=== PATIENT | female | born 1985 | race Caucasian/White ===

== ENCOUNTER 2017-03-18 18:16 | Emergency (ER) | payer MEDICAID ==
[2017-03-18 19:17] LABS: ALBUMIN 3.7 g/dL (3.4-5.0); ALKALINE PHOSPHATASE 67 U/L (46-116); ALT/SGPT 36 U/L (14-59); AST/SGOT 26 U/L (15-37); BILIRUBIN TOTAL 0.55 mg/dL (0.20-1.00); CALCIUM 9.4 mg/dL (8.5-10.1); CARBON DIOXIDE 28.3 mmol/L (21-32); CHLORIDE SERUM 103 mmol/L (98-107); CREATININE SERUM 0.8 mg/dL (0.6-1.0); GFR1 > 60 mL/min; GLUCOSE SERUM 93 mg/dL (74-106); SODIUM SERUM 141 mmol/L (136-145)
[2017-03-18 19:26] LABS: POTASSIUM SERUM 2.8 mmol/L (3.5-5.1)
[2017-03-18 21:50] VITALS: BP 113/68
== END 2017-03-18 21:50 | disposition home or self-care (01) ==
LOC: ED 18:16
PROVIDERS: Emergency Medicine
DX: R07.89 Other chest pain (principal); E78.00 Pure hypercholesterolemia, unspecified
CPT/HCPCS: 36415; J1885; Q0092

== ENCOUNTER 2017-05-09 12:52 | Emergency (ER) | payer SELFPAY ==
[2017-05-09 16:21] LABS: PLATELET COUNT 264 x10^3mcL (130-400)
[2017-05-09 16:22] LABS: BASOPHIL % 2.4 % (0-2); RED CELL DISTRIBUTION WIDTH 14.9 % (11.5-14.5)
[2017-05-09 17:22] VITALS: BP 118/65
== END 2017-05-09 17:22 | disposition home or self-care (01) ==
LOC: ED 12:52
PROVIDERS: Emergency Medicine
DX: O20.0 Threatened abortion (principal); E78.00 Pure hypercholesterolemia, unspecified; Z3A.01 Less than 8 weeks gestation of pregnancy
CPT/HCPCS: 36415; Q0092

== ENCOUNTER 2018-05-31 23:19 | Emergency (ER) | payer MEDICAID ==
[~2018-05-31] VITALS: Ht 154.9 cm; Wt 82.6 kg
[2018-05-31 23:25] VITALS: Ht 154.9 cm; Wt 82.6 kg
[2018-06-01 02:03] LABS: BASOPHIL % 0.6 % (0-2); PLATELET COUNT 222 x10^3mcL (130-400)
[2018-06-01 02:05] LABS: RED CELL DISTRIBUTION WIDTH 16.7 % (11.5-14.5)
[2018-06-01 02:11] LABS: CALCIUM 9.2 mg/dL (8.5-10.1); CARBON DIOXIDE 29.4 mmol/L (21-32); CHLORIDE SERUM 100 mmol/L (98-107); CREATININE SERUM 0.7 mg/dL (0.6-1.0); GFR1 > 60 mL/min; GLUCOSE SERUM 135 mg/dL (74-106); POTASSIUM SERUM 3.3 mmol/L (3.5-5.1); SODIUM SERUM 139 mmol/L (136-145)
[2018-06-01 02:17] LABS: ALKALINE PHOSPHATASE 84 U/L (46-116); ALT/SGPT 90 U/L (14-59); AST/SGOT 42 U/L (15-37); BILIRUBIN TOTAL 0.4 mg/dL (0.20-1.00); LIPASE 152 IU/L (73-393)
[2018-06-01 02:18] LABS: ALBUMIN 3.2 g/dL (3.4-5.0)
[2018-06-01 03:35] VITALS: BP 120/67
== END 2018-06-01 03:35 | disposition home or self-care (01) ==
LOC: ED 23:19
PROVIDERS: Emergency Medicine
DX: R00.2 Palpitations (principal); R07.89 Other chest pain; R11.0 Nausea; E78.00 Pure hypercholesterolemia, unspecified
CPT/HCPCS: 36415; J1885; Q0092; Q0162

== ENCOUNTER 2018-07-20 17:00 | Inpatient (IN) | payer MEDICAID ==
[~2018-07-20] VITALS: Ht 154.9 cm; Wt 80.7 kg
[2018-07-20 17:10] VITALS: Ht 154.9 cm; Wt 80.7 kg
[2018-07-20 18:24] LABS: RED CELL DISTRIBUTION WIDTH 18.5 % (11.5-14.5)
[2018-07-20 18:25] LABS: PLATELET COUNT 444 x10^3mcL (130-400)
[2018-07-20 18:35] LABS: CALCIUM 8.6 mg/dL (8.5-10.1); CARBON DIOXIDE 26.8 mmol/L (21-32); CHLORIDE SERUM 104 mmol/L (98-107); CREATININE SERUM 0.7 mg/dL (0.6-1.0); GFR1 > 60 mL/min; GLUCOSE SERUM 105 mg/dL (74-106); POTASSIUM SERUM 3.4 mmol/L (3.5-5.1); SODIUM SERUM 139 mmol/L (136-145)
[2018-07-20 18:40] LABS: ALKALINE PHOSPHATASE 87 U/L (46-116); ALT/SGPT 17 U/L (14-59); AMYLASE 49 U/L (25-115); AST/SGOT 12 U/L (15-37); LIPASE 113 IU/L (73-393); TOTAL PROTEIN, SERUM 7.7 g/dL (6.4-8.2)
[2018-07-20 18:44] LABS: ALBUMIN 3.3 g/dL (3.4-5.0)
[2018-07-20 18:48] LABS: BAND NEUTROPHIL 2 % (0-10); MONOCYTE 3 % (0-7); SEGMENTED NEUTROPHILS 88 % (37-75)
[2018-07-20 18:49] LABS: PLATELET MORPHOLOGY PLATELETS NORMAL; rbc morphology (normal/abnorm) ABNORMAL (NORMAL)
[2018-07-20] MEDS ORDERED: APAP500 MG (21:05)
[2018-07-20 21:24] LABS: MAGNESIUM 1.6 mg/dL (1.8-2.4)
[2018-07-20 22:13] VITALS: BP 106/58
[2018-07-21 05:28] VITALS: BP 108/68
[2018-07-21 07:29] LABS: CALCIUM 8.4 mg/dL (8.5-10.1); CARBON DIOXIDE 26.3 mmol/L (21-32); CHLORIDE SERUM 107 mmol/L (98-107); CREATININE SERUM 0.7 mg/dL (0.6-1.0); GFR1 > 60 mL/min; GLUCOSE SERUM 88 mg/dL (74-106); MAGNESIUM 2.5 mg/dL (1.8-2.4); PHOSPHOROUS 2.3 mg/dL (2.5-4.9); POTASSIUM SERUM 3.8 mmol/L (3.5-5.1); SODIUM SERUM 141 mmol/L (136-145)
[2018-07-21 07:31] LABS: BASOPHIL % 0.2 % (0-2); PLATELET COUNT 400 x10^3mcL (130-400); RED CELL DISTRIBUTION WIDTH 18.7 % (11.5-14.5)
[2018-07-21 08:31] LABS: rbc morphology (normal/abnorm) ABNORMAL (NORMAL); tear drop cell (dacryocyte) 1+
[2018-07-21 11:00] VITALS: BP 107/63
[2018-07-21 16:45] VITALS: BP 95/59
[2018-07-21 21:35] VITALS: BP 106/64
[2018-07-22 06:45] VITALS: BP 99/57
[2018-07-22 07:11] LABS: BASOPHIL % 0.3 % (0-2); PLATELET COUNT 400 x10^3mcL (130-400); RED CELL DISTRIBUTION WIDTH 18.5 % (11.5-14.5)
[2018-07-22 07:12] LABS: rbc morphology (normal/abnorm) ABNORMAL (NORMAL)
[2018-07-22 07:30] LABS: CALCIUM 8.3 mg/dL (8.5-10.1); CARBON DIOXIDE 25.9 mmol/L (21-32); CHLORIDE SERUM 107 mmol/L (98-107); CREATININE SERUM 0.8 mg/dL (0.6-1.0); GFR1 > 60 mL/min; GLUCOSE SERUM 103 mg/dL (74-106); MAGNESIUM 2.1 mg/dL (1.8-2.4); PHOSPHOROUS 2.5 mg/dL (2.5-4.9); POTASSIUM SERUM 4.3 mmol/L (3.5-5.1); SODIUM SERUM 140 mmol/L (136-145)
[2018-07-22 09:15] VITALS: BP 103/74
[2018-07-22] MEDS ORDERED: IBUPROFEN800 MG PO (12:37)
[2018-07-22 13:20] VITALS: BP 103/74
== END 2018-07-22 16:24 | disposition home or self-care (01) | DRG 233 ==
LOC: ED 17:00 → MU 20:35
PROVIDERS: Emergency Medicine; Surgery; ADMIT Internal Medicine
PROC: 0DTJ4ZZ Resection of Appendix, Percutaneous Endoscopic Approach (ICD-10-PCS; principal; 2018-07-21 08:30)
DX: K35.33 Acute appendicitis with perforation, localized peritonitis, and gangrene, with abscess (principal); E44.1 Mild protein-calorie malnutrition; E83.42 Hypomagnesemia; E87.6 Hypokalemia; D47.3 Essential (hemorrhagic) thrombocythemia; E66.9 Obesity, unspecified; Z68.33 Body mass index [BMI] 33.0-33.9, adult
CPT/HCPCS: 94150; J0330; J0694; J1170; J1885; J2405; J2704; J2710; J3010; J3475; J3490; J7030; J7060; J7070; J7120; Q0092

== ENCOUNTER 2019-03-12 06:15 | Emergency (ER) | payer MEDICAID ==
[~2019-03-12] VITALS: Ht 152.4 cm; Wt 86.3 kg
[~2019-03-12 06:15] MED LIST: APAP500 MG; IBUPROFEN800 MG PO
[2019-03-12 08:05] VITALS: BP 101/55
== END 2019-03-12 08:05 | disposition home or self-care (01) ==
LOC: ED 06:15
DX: M79.641 Pain in right hand (principal); M79.642 Pain in left hand; R20.2 Paresthesia of skin; Z98.890 Other specified postprocedural states; Z90.89 Acquired absence of other organs

== ENCOUNTER 2019-06-20 14:17 | Emergency (ER) | payer MEDICAID ==
[~2019-06-20] VITALS: Ht 154.9 cm; Wt 87.5 kg
[2019-06-20 14:34] VITALS: BP 124/72; Ht 154.9 cm; Wt 87.5 kg
== END 2019-06-20 16:38 | disposition home or self-care (01) ==
LOC: ED 14:17
DX: S63.601A Unspecified sprain of right thumb, initial encounter (principal); W23.0XXA Caught, crushed, jammed, or pinched between moving objects, initial encounter; Y93.89 Activity, other specified; Y92.89 Other specified places as the place of occurrence of the external cause; Y99.8 Other external cause status